=== PATIENT | male | born 1990 | race Caucasian/White ===

== ENCOUNTER 2017-08-29 04:14 | Emergency (ER) | payer SELFPAY, BC | END 2017-08-29 08:15 | disposition home or self-care (01) | LOC: M ED 04:14 | DX: Z04.6 Encounter for general psychiatric examination, requested by authority (principal); F10.929 Alcohol use, unspecified with intoxication, unspecified; H91.90 Unspecified hearing loss, unspecified ear; R47.9 Unspecified speech disturbances | CPT/HCPCS: 99281 ==

== ENCOUNTER 2021-04-16 20:30 | Emergency (ER) | payer SELFPAY ==
[~2021-04-16] VITALS: Ht 170.2 cm; Wt 100.0 kg
[2021-04-16 20:31] VITALS: BP 149/91
--- OUTSIDE RECORDS SUMMARY | 2021-04-16 20:37 | CCD ---
Author Author [facility] Address Unknown Phone Unavailable Support Name Relationship Address Phone UE Next Of Kin Unknown Unavailable ST Next Of Kin Unknown Unavailable TERESSA BERNABE Next Of Kin [address] [place] [address] FRANCO BERNABE Next Of Kin [address] [place] [address] Re-disclosure Warning The records that you are about to access may contain information from federally-assisted alcohol or drug abuse programs. If such information is present, then the following federally mandated warning applies: This information has been disclosed to you from records protected by federal confidentiality rules (42 CFR part 2). The federal rules prohibit you from making any further disclosure of this information unless further disclosure is expressly permitted by the written consent of the person to whom it pertains or as otherwise permitted by 42 CFR part 2. A general authorization for the release of medical or other information is NOT sufficient for this purpose. The Federal rules restrict any use of the information to criminally investigate or prosecute any alcohol or drug abuse patient.The records that you are about to access may contain highly sensitive health information, the redisclosure of which is protected by Article 27-F of the [facility] Public Health law. If you continue you may have access to information: Regarding HIV / AIDS; Provided by facilities licensed or operated by the [facility] Office of Mental Health; or Provided by the [facility] Office for People With Developmental Disabilities. If such information is present, then the following [facility] mandated warning applies: This information has been disclosed to you from confidential records which are protected by state law. State law prohibits you from making any further disclosure of this information without the specific written consent of the person to whom it pertains, or as otherwise permitted by law. Any unauthorized further disclosure in violation of state law may result in a fine or mcc sentence or both. A general authorization for the release of medical or other information is NOT sufficient authorization for further disc losure. Immunizations Vaccine Date Status Description Data Source(s) COVID-19 VACCINE Moderna 10/17/2020 12:00:00 AM EDT completed Going Vaccine Series Complete: YESThis Data wa s Submitted to [facility] Via [employer]. COVID-19 VACCINE Moderna 09/19/2020 12:00:00 AM EDT completed [id number] Vaccine Series Complete: NOThis Data was Submitted to [facility] Via [employer]. Medications No Information Insurance Providers Payer name Policy type / Coverage type Policy ID Covered constitution party ID Covered constitution party's relationship to burns Policy Burns Plan Information SELF PAY ONLY [id number] SP [id number] [facility] [id number] Problems, Conditions, and Diagnoses No Information Surgeries/Procedures No Information Results No Information Social History No Information
--- NOTE | 2021-04-16 22:13 | REPVR ---
PROCEDURE INFORMATION: Exam: CT Head Without Contrast Exam date and time: 04/16/2021 9:08 PM Age: 30 years old Clinical indication: Weakness, extremity; Left; Additional info: Left sided weakness TECHNIQUE: Imaging protocol: Computed tomography of the head without contrast. Radiation optimization: All CT scans at this facility use at least one of these dose optimization techniques: automated exposure control; mA and/or kV adjustment per patient size (includes targeted exams where dose is matched to clinical indication); or iterative reconstruction. COMPARISON: No relevant prior studies available. FINDINGS: Brain: Normal. No hemorrhage. Unremarkable white matter. No mass effect. Cerebral ventricles: No ventriculomegaly. Paranasal sinuses: Visualized sinuses are unremarkable. No fluid levels. Mastoid air cells: Visualized mastoid air cells are well aerated. Bones/joints: Unremarkable. No acute fracture. Soft tissues: Unremarkable. IMPRESSION: No acute intracranial abnormality. Electronically signed by: Mati Castorena On 04/16/2021 22:12:29 PM
[2021-04-16 22:59] LABS: HEMATOCRIT 46.6 % (42.0-52.0); MEAN CORPUSCULAR HGB CONC 34.3 g/dl (32.0-36.5); MEAN CORPUSCULAR VOLUME 87.4 fl (80.0-96.0); PLATELET COUNT, AUTOMATED 299 10^3/uL (150-450); RED BLOOD COUNT 5.33 10^6/uL (4.30-6.10); WHITE BLOOD COUNT 8.8 10^3/uL (4.0-10.0)
[2021-04-16 23:29] LABS: BLOOD UREA NITROGEN 20 MG/DL (7-18); CARBON DIOXIDE LEVEL 26 MEQ/L (21-32); CHLORIDE LEVEL 105 MEQ/L (98-107); CREATININE FOR GFR 1.14 MG/DL (0.70-1.30); GLOMERULAR FILTRATION RATE > 60.0 (>60); GLUCOSE, FASTING 94 MG/DL (70-100); POTASSIUM SERUM 3.8 MEQ/L (3.5-5.1); SODIUM LEVEL 139 MEQ/L (136-145)
--- OUTSIDE RECORDS SUMMARY | 2021-06-11 07:13 | CCD ---
Author [facility] Address Unknown Phone Unavailable Support Name Relationship Address Phone UE Next Of Kin Unknown Unavailable ST Next Of Kin Unknown Unavailable TERESSA BERNABE Next Of Kin [address] [place], [place] [address] FRANCO BERNABE Next Of Kin [address] [place], [place] [address] FRANCO BERNABE ECON [address] [place], [place] [address] Re-disclosure Warning The records that you are [...] is protected by Article 27-F of the [facility] Public Health law. If you continue you may have access to information: Regarding HIV / AIDS; Provided by facilities licensed or operated by the [facility] Office of Mental Health; or Provided by the [facility] Office for People With Developmental Disabilities. If such information is present, then the following [facility] mandated warning applies: This information has [...] law may result in a fine or skilled nursing sentence or both. A general authorization for the release of medical or other information is NOT sufficient authorization for further disc losure. Immunizations Vaccine Date Status Description Data Source(s) COVID-19 VACCINE Moderna 10/17/2020 12:00:00 AM EDT completed [employer] Vaccine Series Complete: YESThis Data wa s Submitted to [facility] Via [employer]. COVID-19 VACCINE Moderna 09/19/2020 12:00:00 AM EDT completed [employer] Vaccine Series Complete: NOThis Data was Submitted to [facility] Via [employer]. Medications No Information Insurance Providers Payer name Policy type / Coverage type Policy ID Covered green party ID Covered green party's relationship to burns Policy Burns Plan Information SELF PAY ONLY [id number] SP [id number] [facility] [id number] Problems, Conditions, and Diagnoses No Information Surgeries/Procedures No Information Results No Information Social History No Information
== END 2021-04-16 23:20 | disposition left against medical advice (07) ==
LOC: M ED 20:30
DX: Z53.21 Procedure and treatment not carried out due to patient leaving prior to being seen by health care provider (principal)

== ENCOUNTER 2023-06-30 03:07 | Emergency (ER) | payer SELFPAY ==
[~2023-06-30] VITALS: Ht 170.2 cm; Wt 102.7 kg
[2023-06-30] MEDS ORDERED: dexAMETHasone 20MG/5ML VIAL IV ONE (03:30)
[2023-06-30] MEDS ORDERED: LIDOCAINE W/EPINEPHRINE 1% 20ML VIAL SC ONE (03:30)
[2023-06-30] MEDS ORDERED: PIPERACILLIN/TAZOBACTAM SOD 3.375 GM in D5W MINI-BAG PLUS 50 ML IV ONE (03:40)
[2023-06-30] MEDS ORDERED: ONDANSETRON 4MG 2ML VIAL IV ONE (03:55)
[2023-06-30] MEDS ORDERED: MORPHINE 2 MG/ML 1ML VIAL As Ordered ONE (04:43)
[2023-06-30] MEDS ORDERED: MORPHINE 2 MG/ML 1ML VIAL IV ONE (05:00)
[2023-06-30] MEDS ORDERED: AMOX875T2 PO (05:52)
[2023-06-30] MEDS ORDERED: TRAM50TA2 PO (05:52)
[2023-06-30] MEDS ORDERED: PERI0.126 PO (05:52)
[2023-06-30] MEDS ORDERED: MEDR4PAK PO (05:53)
[2023-06-30 06:10] VITALS: BP 128/78; TEMP 98.8; O2SAT 98
== END 2023-06-30 06:12 | disposition home or self-care (01) ==
LOC: M ED 03:07
DX: J36 Peritonsillar abscess (principal); Z79.2 Long term (current) use of antibiotics; Z79.899 Other long term (current) drug therapy; Z79.891 Long term (current) use of opiate analgesic
CPT/HCPCS: 87070; 87077; 87186; 87205; 96365; 96366; 96375; 99284; J1100; J2405; J2543